=== PATIENT | female | born 1985 | race African-American/Black ===

== ENCOUNTER 2019-05-31 15:37 | Inpatient (IN) ==
[2019-05-31] MEDS ORDERED: LACTATED RINGERS 500 ML IV PRN (15:59)
[2019-05-31] MEDS ORDERED: LACTATED RINGERS 250 ML IV ONE (15:59)
[2019-05-31] MEDS ORDERED: LACTATED RINGERS 1,000 ML IV SCH (16:00)
[2019-05-31 17:13] LABS: Basophils % 0.3 % (0.0-0.8); Eosinophils % 0.7 % (0.00-10.9); Hematocrit 30.1 VOL% (35.7-47.0); Hemoglobin 9.8 GM/DL (12.0-16.0); Immature Granulocytes % 0.3 %; Immature Granulocytes Absolute 0.02 #; Lymphocytes # 1.1 10*3/uL (1.4-4.0); Lymphocytes % 18.1 % (21.3-54.2); Mean Corpuscular HGB Conc 32.6 GM/DL (32-36); Mean Corpuscular Volume 92.6 FL (87-102); Mean Platelet Volume 10.9 FL (9.6-12.0); Neutrophils % 69.6 % (38.7-73.9); Platelet Count 225 T/CUMM (130-400); Red Blood Count 3.25 MC/CUMM (3.8-5.5); Red Cell Distribution Width 12.6 % (9.3-17.3); White Blood Count 6.1 T/CUMM (4-12)
[2019-05-31 17:36] LABS: Albumin 2.7 G/DL (3.4-5.0); Bilirubin,Total 0.4 MG/DL (0.2-1.0); Calcium 8.5 MG/DL (8.5-10.1); Osmolality,Calculated 282.8 MOS/KG (273-304); Total Protein 6.4 G/DL (6.4-8.3)
[2019-05-31] MEDS ORDERED: MEPERIDINE 25 MG/1 ML VIAL IV PRN (21:30)
[2019-05-31] MEDS: ONDANSETRON 4 MG/2 ML VIAL IV PRN (22:05)
[2019-06-01] MEDS: MEPERIDINE 50 MG/1 ML VIAL IV PRN ×4 (00:33→08:52)
[2019-06-01] MEDS: ONDANSETRON 4 MG/2 ML VIAL IV PRN (03:42)
[2019-06-01] MEDS ORDERED: OXYTOCIN/LR 20 UNIT/1,000 ML BAG IV SCH (05:00)
[2019-06-01] MEDS ORDERED: miSOPROStoL 200 MCG TABLET ONE (09:12)
[2019-06-01] MEDS ORDERED: TRANEXAMIC ACID 1,000 MG/10 ML VIAL ONE (09:12)
[2019-06-01] MEDS ORDERED: METHYLERGONOVINE 0.2 MG/1 ML AMP ONE (09:12)
[2019-06-01] MEDS ORDERED: LIDOCAINE 1% 50 ML VIAL ONE (09:13)
[2019-06-01] MEDS ORDERED: CARBOPROST TROMETHAMINE 250 MCG/ML AMP IM ONE (09:13)
[2019-06-01 09:46] LABS: Cord Venous Blood HCO3 23.2 MMOL/L; Cord Venous Blood PCO2 50.6 MMHG; Cord Venous Blood PO2 35.4 MMHG
[2019-06-01] MEDS ORDERED: ACETAMINOPHEN 325 MG TABLET PO PRN (09:47)
[2019-06-01] MEDS ORDERED: OXYTOCIN/LR 20 UNIT/1,000 ML BAG IV ONE (09:47)
[2019-06-01] MEDS ORDERED: HYDROCORTISONE 2.5% RECTAL CREAM 30 GM TUBE TOP PRN (09:47)
[2019-06-01] MEDS ORDERED: RHO(D) IMMUNE GLOBULIN 300 MCG SYRINGE IM ONE (09:47)
[2019-06-01] MEDS ORDERED: WITCH HAZEL PADS 100/JAR TOP PRN (09:47)
[2019-06-01] MEDS ORDERED: DIPH/TET/ACEL PERT BOOSTER VACCINE 0.5 ML VIAL IM ONE (09:47)
[2019-06-01] MEDS ORDERED: MEASLES/MUMPS/RUBELLA VACCINE 0.5 ML VIAL SUBCUT ONE (09:47)
[2019-06-01] MEDS ORDERED: BISACODYL 10 MG SUPP RECTAL PRN (09:47)
[2019-06-01] MEDS ORDERED: oxyCODONE/ACETAMINOPHEN 5-325 MG TABLET PO PRN ×2 (09:47)
[2019-06-01] MEDS ORDERED: BENZOCAINE 20%/MENTHOL 0.5% SPRAY 56 GM CAN TOP PRN (09:47)
[2019-06-01] MEDS ORDERED: LANOLIN 50% CREAM 0.3 OZ TUBE TOP PRN (09:47)
[2019-06-01] MEDS: IBUPROFEN 800 MG TABLET PO PRN (17:59)
[2019-06-01] MEDS: FERROUS SULFATE 325 MG TABLET PO SCH ×2 (19:14→20:52)
[2019-06-01] MEDS: DOCUSATE SODIUM 100 MG CAPSULE PO SCH (20:52)
[2019-06-02 05:48] LABS: Basophils % 0.4 % (0.0-0.8); Eosinophils % 0.5 % (0.00-10.9); Hematocrit 25.6 VOL% (35.7-47.0); Hemoglobin 8.4 GM/DL (12.0-16.0); Immature Granulocytes % 0.6 %; Immature Granulocytes Absolute 0.05 #; Lymphocytes # 1.2 10*3/uL (1.4-4.0); Lymphocytes % 14.7 % (21.3-54.2); Mean Corpuscular HGB Conc 32.8 GM/DL (32-36); Mean Corpuscular Volume 93.1 FL (87-102); Mean Platelet Volume 10.9 FL (9.6-12.0); Neutrophils % 75.8 % (38.7-73.9); Platelet Count 169 T/CUMM (130-400); Red Blood Count 2.75 MC/CUMM (3.8-5.5); Red Cell Distribution Width 12.8 % (9.3-17.3); White Blood Count 8.2 T/CUMM (4-12)
[2019-06-02] MEDS: DOCUSATE SODIUM 100 MG CAPSULE PO SCH ×2 (08:45→21:29)
[2019-06-02] MEDS: FERROUS SULFATE 325 MG TABLET PO SCH ×3 (08:45→21:29)
[2019-06-02] MEDS: IBUPROFEN 800 MG TABLET PO PRN (20:04)
[2019-06-03 07:31] VITALS: BP 109/70
[2019-06-03] MEDS ORDERED: INFLUENZA VIRUS VACCINE 0.5 ML SYRINGE IM ONE (08:20)
[2019-06-03] MEDS: FERROUS SULFATE 325 MG TABLET PO SCH (09:45)
[2019-06-03] MEDS: DOCUSATE SODIUM 100 MG CAPSULE PO SCH (09:45)
[2019-06-03] MEDS: IBUPROFEN 800 MG TABLET PO PRN (11:51)
== END 2019-06-03 12:30 | disposition home or self-care (01) | DRG 560 ==
LOC: N.LDOUT 15:37 → N.LD 15:41 → N.OB 06-01 11:16
PROVIDERS: ADMIT Obstetrics & Gynecology; ATTEND Obstetrics & Gynecology